=== PATIENT | female | born 1980 | race Caucasian/White ===

== ENCOUNTER → 2017-01-19 | Outpatient (CLI) | payer OTHER ==
--- NOTE | 2017-01-19 15:02 | CR ---
EXAMINATION: Two-view chest (PA and Lateral views). HISTORY: Nasopharyngitis. FINDINGS: The trachea is midline. The cardiomediastinal silhouette is within normal limits. No pulmonary infil trates, effusions or pneumothorax. Osseous structures appear unremarkable. IMPRESSION: No acute cardiopulmonary process.
== END ==
LOC: MW.CHRC 13:50
PROVIDERS: ATTEND Family Medicine
DX: J00 Acute nasopharyngitis [common cold] (principal)
CPT/HCPCS: 71020; 71020-26; 87804

== ENCOUNTER → 2017-03-03 | Outpatient (CLI) | payer OTHER ==
[~2017-03-03] MED LIST: Gadobutrol 7.5 mMOL/7.5 ML SDV IVPUSH STA
--- NOTE | 2017-03-03 14:20 | MR ---
EXAMINATION: MRI of the brain with and without contrast. TECHNIQUE: Multiplanar and multisequence imaging of the brain without and following the administrati on of 7 mL of Gadavist. HISTORY: Benign paroxysmal vertigo. FINDINGS: Cerebral hemispheres and the deep nuclei are without hemorrhage, mass, edema, enhancement or atroph y. There are a few scattered subcortical and periventricular white matter FLAIR hyperintensities not ed. A few of these appear juxtacortical. No extraaxial collections or hemorrhage. The Ventricular system is of normal size and configuration without hydrocephalus. The brainstem and cerebellum are without hemorrhage, mass, edema, gliosis, e nhancement or atrophy. No diffusion restriction. Carotid basilar artery flow voids are intact. The venous sinuses are patent. There is moderate fluid within the right maxillary sinus. No internal auditory canal or cerebellopon durga angle masses or enhancement. The paranasal sinuses are clear. Globes, optic nerves, orbital apices, optic chiasm, optic tracts, lateral geniculate and visual deven ices are unremarkable. The pituitary and sella turcica are unremarkable. No meningeal enhancement. The craniocervical junction is unremarkable without Chiari malformation. No siderosis or evidence of vascular malformation. The calvarium is intact. IMPRESSION: 1. Several subtle white matter FLAIR foci, nonspecific. A few appear juxtacortical, this could sugge st a demyelinating process such as MS. 2. No acute intracranial abnormalities. 3. Mild fluid within the right mastoid air cells, likely an effusion.
== END | disposition home or self-care (01) ==
LOC: MW.MRI 08:47
PROVIDERS: ATTEND Family Medicine
DX: H81.11 Benign paroxysmal vertigo, right ear (principal)
CPT/HCPCS: 70553; A9585

== ENCOUNTER 2017-06-08 04:45 | Emergency (ER) | payer OTHER ==
[2017-06-08] MEDS ORDERED: Ketorolac 30 MG/ML SDV IVPUSH ONE (04:55)
[2017-06-08] MEDS ORDERED: HYDROmorphone 2 MG/ML Syringe IVPUSH ONE (04:55)
[2017-06-08] MEDS ORDERED: Ondansetron 4 MG/2 ML SDV IVPUSH ONE ×2 (04:55→05:55)
[2017-06-08] MEDS ORDERED: Sodium Chloride 0.9% 10 ML Syringe FLUSH PRN (04:55)
[2017-06-08] MEDS ORDERED: Sodium Chloride 0.9% 1,000 ML IV ONE (04:55)
[2017-06-08] MEDS ORDERED: Sodium Chloride 0.9% 2.5 ML Syringe FLUSH PRN (04:55)
--- NOTE | 2017-06-08 05:00 | EDM.PDOC ---
ED HPI GENERAL MEDICAL PROBLEM - General Chief Complaint: Flank Pain Stated Complaint: KIDNEY STONES Time Seen by Provider: 06/08/17 04:51 - History of Present Illness INITIAL COMMENTS - FREE TEXT/NARRATIVE: HISTORY AND PHYSICAL: History of present illness: The patient is a 36-year-old female who says that she has had many episodes of kidney stones all of which she has passed spontaneously and never had to have surgeries and presents with recurrent right lower quadrant pain that has been ongoing since mid April. The patient was seen in the clinic and had labs and a CT scan of the abdomen and pelvis performed on May 13 which I have reviewed--- the CT showed a 3-4 mm stone in the mid right ureter without significant hydronephrosis. The patient states she's been taking Flomax and straining her urine but has not passed the kidney stone. She's been doing relatively well and over the last few days she has had recurrence of the pain which is waxing and waning in intensity and she has not been taking any pain medication for it. She says she has no prescription pain medicines either that she can take. She says she is still passing blood with her urine. The patient says she has been just trying to deal with the pain at home and then it worsened this evening and this morning and at 5 AM, one hour ago, she started having vomiting and nausea for evaluation. She says she normally drinks a lot of sweet tea but has been trying to increase her hydration since she was diagnosed with a kidney stone. She has not followed up in the clinic since that visit but she has seen the urologist one time in the office 2 weeks ago and was told to come to the ER if the pain increased. Patient describes the pain as deep sharp and located in the right lower quadrant and area and it is similar to her prior kidney stone pain. Patient has a history of a tubal ligation but still has her appendix but has not had any fevers. Review of systems: As per history of present illness and below otherwise all systems reviewed and negative. Past medical history: As per history of present illness and as reviewed below otherwise noncontributory. Surgical history: As per history of present illness and as reviewed below otherwise noncontributory. Social history: No reported history of drug or alcohol abuse. Family history: As per history of present illness and as reviewed below otherwise noncontributory. Physical exam: General: Well-developed well-nourished female who is nontoxic and looks uncomfortable in the bed HEENT: Atraumatic, normocephalic, pupils reactive, negative for conjunctival pallor or scleral icterus, mucous membranes tacky, throat clear, neck supple, nontender, trachea midline. Lungs: Clear to auscultation, breath sounds equal bilaterally, chest nontender. Heart: S1S2, regular rate and rhythm no overt murmurs Abdomen: Soft, nondistended, nontender. I cannot reproduce the pain on palpation Negative for masses or hepatosplenomegaly. Negative for costovertebral tenderness. Pelvis: Stable nontender. Genitourinary: Deferred. Rectal: Deferred. Extremities: Atraumatic, negative for cords or calf pain. Neurovascular unremarkable. Neuro: Awake, alert, oriented. Cranial nerves II through XII unremarkable. Cerebellum unremarkable. Motor and sensory unremarkable throughout. Exam nonfocal. Diagnostics: CBC CMP UA urine culture CT scan of the abdomen and pelvis Therapeutics: IV fluids Zofran Toradol Dilaudid With the patient's allergies and specifically asked her if she could have IV narcotics and she states that she does not have a reaction to them. The patient is aware of all testing results and states that her pain is significantly improved and manageable. She still having some dry heaves in the ER so we will give a second dose of Zofran and reevaluate. She is giving a urine sample now which I will follow-up with and plan to discuss with urology CT scan results and the patient's clinical condition. I did clarify with the patient her reaction to taking Vicodin and acetaminophen in the Vicodin and she states that she was told by a performance improvement coordinator that she had some irregular beats with her heart not cardiac arrest and that she probably shouldn't take it. She has never had cardiac arrest or anything more significant than some cardiac ectopy with this medication. 0635: Testing results were reviewed with Dr. Brennan her urologist; he wants the patient to be given a dose of IV Cipro and see him in these office today at 1 PM. I will write prescriptions for Zofran Proctor and advised her to return to the ER if she cannot make it to the 1 PM appointment. Impression: Right ureteral colic, persistent right ureteral stone, UTI Definitive disposition and diagnosis as appropriate pending reevaluation and review of above. Right Flank Pain Score (Numeric/FACES): 9 - Related Data Allergies Allergy/AdvReac Type Severity Reaction Status Date / Time acetaminophen [From Vicodin] Allergy Arrhythmias Verified 06/08/17 06:09 hydrocodone [From Vicodin] Allergy Arrhythmias Verified 06/08/17 06:09 levofloxacin [From Levaquin] Allergy Vomiting Verified 06/08/17 04:48 oxycodone [From Percocet] Allergy Rash Verified 06/08/17 04:48 Penicillins Allergy Other Verified 06/08/17 04:48 promethazine [From Phenergan] Allergy Other Verified 06/08/17 04:48 Home Meds: Home Meds Topiramate 50 mg PO DAILY 12/09/16 [History] metFORMIN HCl [Metformin HCl] 500 mg PO DAILY 12/09/16 [History] FLUoxetine HCl [Prozac] 60 mg PO DAILY 06/08/17 [History] Tamsulosin [Flomax] 0.4 mg PO BEDTIME 06/08/17 [History] Past Medical History HEENT History: Reports: Other (See Below) Other HEENT History: Seasonal allergies Musculoskeletal History: Reports: Other (See Below) Other Musculoskeletal History: Scoliosis Endocrine/Metabolic History: Reports: Diabetes, Type II Social & Family History - Tobacco Use Smoking Status *Q: Never Smoker Second Hand Smoke Exposure: No - Caffeine Use Caffeine Use: Reports: Tea - Recreational Drug Use Recreational Drug Use: No ED ROS GENERAL - Review of Systems Review Of Systems: ROS reveals no pertinent complaints other than HPI. ED EXAM, GENERAL - Physical Exam Exam: See Below (See dictation) Course - Vital Signs Last Recorded V/S: Last Vital Signs Temp 36.4 C 06/08/17 04:47 Pulse 94 06/08/17 06:27 Resp 17 06/08/17 06:27 BP 128/74 06/08/17 06:27 Pulse Ox 95 06/08/17 06:27 - Orders/Labs/Meds Orders: Active Orders 24 hr Category Date Time Status Abdomen Pelvis wo Cont [CT] Stat Exams 06/08/17 04:55 Taken CULTURE URINE [RM] Stat Lab 06/08/17 05:53 Received Ciprofloxacin in D5W [Cipro in D5W 400 MG/200 ML] 400 Med 06/08/17 06:37 Ordered mg Premix Bag 1 bag IV ONETIME Sodium Chloride 0.9% [Saline Flush] Med 06/08/17 04:55 Active 10 ml FLUSH ASDIRECTED PRN Sodium Chloride 0.9% [Saline Flush] Med 06/08/17 04:55 Active 2.5 ml FLUSH ASDIRECTED PRN Saline Lock Insert [OM.PC] Stat Oth 06/08/17 04:55 Ordered Medication Orders Sodium Chloride (Saline Flush) 10 ml FLUSH ASDIRECTED PRN PRN Reason: Keep Vein Open Last Admin: 06/08/17 05:08 Dose: 10 ml Sodium Chloride (Saline Flush) 2.5 ml FLUSH ASDIRECTED PRN PRN Reason: Keep Vein Open Last Admin: 06/08/17 05:07 Dose: 2.5 ml Labs: Laboratory Tests 06/08/17 06/08/17 06/08/17 Range/Units 04:44 04:44 05:53 WBC 10.26 (4.0-11.0) K/uL RBC 5.54 (4.30-5.90) M/uL Hgb 14.4 (12.0-16.0) g/dL Hct 43.6 (36.0-46.0) % MCV 78.7 L (80.0-98.0) fL MCH 26.0 L (27.0-32.0) pg MCHC 33.0 (31.0-37.0) g/dL RDW Std Deviation 43.2 (28.0-62.0) fl RDW Coeff of Diane 15 (11.0-15.0) % Plt Count 465 H (150-400) K/uL MPV 9.80 (7.40-12.00) fL Neut % (Auto) 62.2 (48.0-80.0) % Lymph % (Auto) 27.5 (16.0-40.0) % Zapata % (Auto) 7.5 (0.0-15.0) % Eos % (Auto) 2.5 (0.0-7.0) % Baso % (Auto) 0.3 (0.0-1.5) % Neut # (Auto) 6.4 H (1.4-5.7) K/uL Lymph # (Auto) 2.8 H (0.6-2.4) K/uL Zapata # (Auto) 0.8 (0.0-0.8) K/uL Eos # (Auto) 0.3 (0.0-0.7) K/uL Baso # (Auto) 0.0 (0.0-0.1) K/uL Nucleated RBC % 0.0 /100WBC Nucleated RBCs # 0 K/uL Sodium 141 (136-146) mmol/L Potassium 3.8 (3.5-5.1) mmol/L Chloride 107 (98-110) mmol/L Carbon Dioxide 22 (21-31) mmol/L BUN 9 (6.0-23.0) mg/dL Creatinine 1.0 (0.6-1.5) mg/dL Est Cr Clr Drug Dosing 69.98 mL/min Estimated GFR (MDRD) > 60.0 ml/min Glucose 136 H (60-110) mg/dL Calcium 9.6 (8.8-10.8) mg/dL Total Bilirubin 0.5 (0.1-1.5) mg/dL AST 19 (5-40) IU/L ALT 28 (8-54) IU/L Alkaline Phosphatase 117 (40-150) Total Protein 8.3 H (6.0-8.0) g/dL Albumin 4.6 (3.5-5.0) g/dL Globulin 3.7 H (2.0-3.5) g/dL Albumin/Globulin Ratio 1.2 L (1.3-2.8) Urine Color BROWN Urine Appearance BLOODY Urine pH 6.5 (5.0-8.0) Ur Specific Arg[place] >= 1.030 (1.001-1.035) Urine Protein >=300 (NEGATIVE) mg/dL Urine Glucose (UA) NEGATIVE (NEGATIVE) mg/dL Urine Ketones TRACE H (NEGATIVE) mg/dL Urine Occult Blood LARGE H (NEGATIVE) Urine Nitrite POSITIVE H (NEGATIVE) Urine Bilirubin MODERATE H (NEGATIVE) Urine Ictotest NEGATIVE Urine Urobilinogen 1.0 (<2.0) EU/dL Ur Leukocyte Esterase SMALL (NEGATIVE) Urine RBC TOO NUMBEROUS TO CT H (0-2/HPF) Urine WBC 5-10 (0-5/HPF) Ur Epithelial Cells FEW (NONE-FEW) Urine Bacteria FEW (NEGATIVE) Meds: Medications Generic Name Dose Route Start Last Admin Trade Name Freq PRN Reason Stop Dose Admin Sodium Chloride 10 ml 06/08/17 04:55 06/08/17 05:08 Saline Flush FLUSH 10 ml ASDIRECTED PRN Administration Keep Vein Open Sodium Chloride 2.5 ml 06/08/17 04:55 06/08/17 05:07 Saline Flush FLUSH 2.5 ml ASDIRECTED PRN Administration Keep Vein Open Discontinued Medications Generic Name Dose Route Start Last Admin Trade Name Freq PRN Reason Stop Dose Admin Hydromorphone HCl 1 mg 06/08/17 04:55 06/08/17 05:04 Dilaudid IVPUSH 06/08/17 04:56 1 mg ONETIME ONE Administration Sodium Chloride 1,000 mls @ 999 mls/hr 06/08/17 04:55 06/08/17 05:02 Normal Saline IV 06/08/17 05:55 999 mls/hr STAT ONE Administration Ketorolac Tromethamine 30 mg 06/08/17 04:55 06/08/17 05:03 Toradol IVPUSH 06/08/17 04:56 30 mg ONETIME ONE Administration Ondansetron HCl 4 mg 06/08/17 04:55 06/08/17 05:02 Zofran IVPUSH 06/08/17 04:56 4 mg ONETIME ONE Administration Ondansetron HCl 4 mg 06/08/17 05:55 06/08/17 06:00 Zofran IVPUSH 06/08/17 05:56 4 mg ONETIME ONE Administration Departure - Departure Time of Disposition: 06:39 Disposition: Home, Self-Care 01 Condition: Good Clinical Impression: Right ureteral stone, UTI, Urinary tract infectious disease - Discharge Information Referrals: PCP,None [Primary Care Provider] - Forms: ED Department Discharge Additional Instructions: The following information is given to patients seen in the emergency department who are being discharged to home. This information is to outline your options for follow-up care. We provide all patients seen in our emergency department with a follow-up referral. The need for follow-up, as well as the timing and circumstances, are variable depending upon the specifics of your emergency department visit. If you don't have a primary care physician on staff, we will provide you with a referral. We always advise you to contact your personal physician following an emergency department visit to inform them of the circumstance of the visit and for follow-up with them and/or the need for any referrals to a consulting specialist. The emergency department will also refer you to a specialist when appropriate. This referral assures that you have the opportunity for followup care with a specialist. All of these measure are taken in an effort to provide you with optimal care, which includes your followup. Under all circumstances we always encourage you to contact your private physician who remains a resource for coordinating your care. When calling for followup care, please make the office aware that this follow-up is from your recent emergency room visit. If for any reason you are refused follow-up, please contact the [facility] emergency department at and ask to speak to the emergency department charge nurse. [facility] [address] [place] [phone] Please go to see Dr. Brennan in his office today at 1 PM for further care. Please take Zofran as needed for nausea and vomiting and use pain medications as needed. Please continue with your Flomax and return to ER as needed and as discussed. - My Orders Last 24 Hours: My Active Orders 06/08/17 04:55 Abdomen Pelvis wo Cont [CT] Stat Sodium Chloride 0.9% [Saline Flush] 10 ml FLUSH ASDIRECTED PRN Sodium Chloride 0.9% [Saline Flush] 2.5 ml FLUSH ASDIRECTED PRN Saline Lock Insert [OM.PC] Stat 06/08/17 05:53 CULTURE URINE [RM] Stat 06/08/17 06:37 Ciprofloxacin in D5W [Cipro in D5W 400 MG/200 ML] 400 mg Premix Bag 1 bag IV ONETIME - Assessment/Plan Last 24 Hours: My Active Orders 06/08/17 04:55 Abdomen Pelvis wo Cont [CT] Stat Sodium Chloride 0.9% [Saline Flush] 10 ml FLUSH ASDIRECTED PRN Sodium Chloride 0.9% [Saline Flush] 2.5 ml FLUSH ASDIRECTED PRN Saline Lock Insert [OM.PC] Stat 06/08/17 05:53 CULTURE URINE [RM] Stat 06/08/17 06:37 Ciprofloxacin in D5W [Cipro in D5W 400 MG/200 ML] 400 mg Premix Bag 1 bag IV ONETIME
[2017-06-08 05:43] LABS: CHLORIDE,CL 107 mmol/L (98-110); SODIUM,NA 141 mmol/L (136-146)
[2017-06-08] MEDS ORDERED: Ciprofloxacin in D5W 400 MG in Premix Bag 1 BAG IV ONE ×2 (06:37)
[2017-06-08 07:45] VITALS: BP 133/83
--- NOTE | 2017-06-08 13:03 | CT ---
EXAM DATE: 06/08/17 PATIENT'S AGE: 36 Patient: ASHER GREENE Facility: [place], [place] Site . Site : [id number] Study: CT Abdomen/Pelvis wo donna [id number]/17/2017 5:33:44 AM Ordering Physician: Praful Man Final Report: INDICATION: Right-sided pain with history of kidney stones. TECHNIQUE: CT abdomen and pelvis without contrast. COMPARISON: Recent CT study dated 05/13/2017. FINDINGS: Lower chest: Unremarkable. Liver: Unremarkable. Spleen: Unremarkable. Pancreas: Unremarkable. Gallbladder and bile ducts: Unremarkable. Adrenal glands: Unremarkable. Kidneys: Stable 4 millimeter nonobstructing left renal calculus. Inferior migration of right ureteral calculus, now noted in the right pelvis on series 201, image 122, measuring 5 millimeters. New mild right hydronephrosis and dilated right ureter, extending to the level of distal right ureteral calculus. GI tract: Small hiatal hernia. Loops of bowel are normal in caliber. Normal appendix. Vascular structures: Limited evaluation mesenteric vessels without IV contrast. Abdominal aorta normal in caliber. Lymph nodes: Unremarkable. Miscellaneous: Unremarkable. No free air or significant free fluid. Pelvic Organs: Postsurgical changes from tubal ligation. Uterus and adnexal structures are unremarkable. No free fluid. Bones: Unremarkable for age. IMPRESSION: 1. Inferior migration of right ureteral calculus from 05/13/2017, now in the distal right ureter just above the right acetabular level, visualized on series 203, image 54, measuring 5 millimeters in size. 2. Interval development of mild right hydronephrosis and hydroureter from earlier CT study. 3. Left nephrolithiasis. No hydronephrosis or left ureteral calculus. 4. Normal appendix. Dictated by Cortes King MD @ 06/08/2017 5:49:32 AM Dictated by: Cortes King MD @ 06/08/2017 05:49:41 (Electronic Signature) Report Signed by Proxy. [facility] HOSPITALSharath
== END 2017-06-08 08:02 | disposition home or self-care (01) ==
LOC: MW.ED 04:45
DX: N13.2 Hydronephrosis with renal and ureteral calculous obstruction (principal); E11.9 Type 2 diabetes mellitus without complications; Z88.6 Allergy status to analgesic agent; Z88.5 Allergy status to narcotic agent; Z88.0 Allergy status to penicillin; Z79.84 Long term (current) use of oral hypoglycemic drugs; Z79.899 Other long term (current) drug therapy
CPT/HCPCS: 74176; 80053; 81001; 85025; 87086; 96361; 96365; 96375; 96376; 99284; J0744; J1170; J1885; J2405; J7040

== ENCOUNTER 2017-06-08 13:31 | Observation (INO) | payer OTHER ==
[2017-06-08] MEDS ORDERED: HYDROmorphone 1 MG/ML Syringe IVPUSH ONE (13:34)
[2017-06-08] MEDS ORDERED: Morphine PF 30 MG/30 ML PCA Vial IV SCH (13:45)
[2017-06-08] MEDS ORDERED: Ciprofloxacin in D5W 400 MG in Premix Bag 1 BAG IV SCH ×2 (13:45)
[2017-06-08] MEDS: Ondansetron 4 MG/2 ML SDV IVPUSH PRN ×2 (13:52→18:37)
[2017-06-08] MEDS: Lactated Ringers 1,000 ML IV SCH ×2 (13:55→22:30)
[2017-06-08] MEDS: Ciprofloxacin in D5W 400 MG in Premix Bag 1 BAG IV SCH ×2 (17:28)
[2017-06-09] MEDS: Lactated Ringers 1,000 ML IV SCH ×2 (05:14→13:47)
[2017-06-09] MEDS: Ciprofloxacin in D5W 400 MG in Premix Bag 1 BAG IV SCH ×2 (05:50)
[2017-06-09] MEDS ORDERED: Iopamidol 408 MG/ML 50 ML SDV ONE (12:08)
[2017-06-09] MEDS ORDERED: fentaNYL 250 MCG/5 ML SDV ONE (14:33)
[2017-06-09] MEDS ORDERED: Midazolam 1 MG/ML 2 ML SDV ONE (14:33)
[2017-06-09] MEDS ORDERED: Propofol 200 MG/20 ML SDV ONE (14:33)
[2017-06-09] MEDS ORDERED: Lidocaine 2% 5 ML SDV ONE (14:33)
--- NOTE | 2017-06-09 14:59 | PCM.PREANE ---
Preanesthetic Assessment - Anesthesia/Transfusion/Family Hx Anesthesia History: Prior Anesthesia Without Reaction Family History of Anesthesia Reaction: No Intubation History: History of Difficulty Intubation - Review of Systems General: No Symptoms Pulmonary: No Symptoms Cardiovascular: No Symptoms, Orthopnea Neurological: No Symptoms Other: Reports: None - Physical Assessment O2 Sat by Pulse Oximetry: 100 Respiratory Rate: 20 Vital Signs: Last Vital Signs Temp 36.3 C 06/09/17 11:44 Pulse 68 06/09/17 11:44 Resp 20 06/09/17 11:44 BP 120/78 06/09/17 11:44 Pulse Ox 100 06/09/17 11:44 Height: 1.65 m Weight: 78.925 kg ASA Class: 2 Mental Status: Alert & Oriented x3 Dentition: Reports: Normal Dentition, Broken Tooth/Teeth, Missing Tooth/Teeth Thyro-Mental Finger Breadths: 1 Mouth Opening Finger Breadths: 2 ROM/Head Extension: Full Lungs: Clear to auscultation Cardiovascular: Regular Rate - Lab Values: Laboratory Last Values POC Glucose 97 mg/dL (60-110) 06/09/17 06:08 - Allergies Allergies/Adverse Reactions: Allergies Allergy/AdvReac Type Severity Reaction Status Date / Time acetaminophen [From Vicodin] Allergy Arrhythmias Verified 06/08/17 06:09 hydrocodone [From Vicodin] Allergy Arrhythmias Verified 06/08/17 06:09 levofloxacin [From Levaquin] Allergy Vomiting Verified 06/08/17 04:48 oxycodone [From Percocet] Allergy Rash Verified 06/08/17 04:48 Penicillins Allergy Other Verified 06/08/17 04:48 promethazine [From Phenergan] Allergy Other Verified 06/08/17 04:48 - Blood Blood Available: No Product(s) Available: None - Acknowledgements Anesthesia Type Planned: General Anesthesia Pt an Appropriate Candidate for the Planned Anesthesia: Yes Alternatives and Risks of Anesthesia Discussed w Pt/Guardian: Yes Pt/Guardian Understands and Agrees with Anesthesia Plan: Yes PreAnesthesia Questionnaire HEENT History: Reports: Other (See Below) Other HEENT History: Seasonal allergies Cardiovascular History: Reports: High Cholesterol, Hypertension Genitourinary History: Reports: Renal Calculus INSERTER History: Reports: Musculoskeletal History: Reports: Other (See Below) Other Musculoskeletal History: Scoliosis Psychiatric History: Reports: Depression Endocrine/Metabolic History: Reports: Diabetes, Type II - Infectious Disease History Infectious Disease History: Reports: Chicken Pox - Past Surgical History Female Surgical History: Reports: Tubal Ligation - SUBSTANCE USE Smoking Status *Q: Unknown Ever Smoked Second Hand Smoke Exposure: No Recreational Drug Use History: No - HOME MEDS Home Medications: Home Meds Topiramate 50 mg PO BID 12/09/16 [History] metFORMIN HCl [Metformin HCl] 500 mg PO BIDMEALS 12/09/16 [History] FLUoxetine HCl [Prozac] 60 mg PO DAILY 06/08/17 [History] Ferrous Sulfate 325 mg PO TIDMEALS 06/08/17 [History] Tamsulosin [Flomax] 0.4 mg PO BEDTIME 06/08/17 [History] - CURRENT (IN HOUSE) MEDS Current Meds: Current Medications Lactated Ringer's (Ringers, Lactated) 1,000 mls @ 150 mls/hr IV ASDIRECTED [facility] Last Admin: 06/09/17 13:47 Dose: 150 mls/hr Ciprofloxacin/Dextrose 400 mg/ (Premix) 200 mls @ 200 mls/hr IV Q12H [facility] Last Admin: 06/09/17 05:50 Dose: 200 mls/hr Morphine Sulfate (Morphine Engineering Supervisor 30 Mg In 30 Ml) 0 mg IV ASDIRECTED [facility] PRN Reason: Protocol Last Admin: 06/08/17 14:00 Dose: 30 mg Ondansetron HCl (Zofran) 4 mg IVPUSH Q3H PRN PRN Reason: Nausea Last Admin: 06/08/17 18:37 Dose: 4 mg Discontinued Medications Fentanyl (Sublimaze) Confirm Administered Dose 250 mcg .ROUTE .STK-MED ONE Stop: 06/09/17 14:34 Hydromorphone HCl (Dilaudid) 2 mg IVPUSH ONETIME ONE Stop: 06/08/17 13:35 Last Admin: 06/08/17 13:53 Dose: 2 mg Ciprofloxacin/Dextrose 400 mg/ (Premix) 200 mls @ 200 mls/hr IV Q12H [facility] Last Admin: 06/08/17 14:48 Dose: Not Given Iopamidol (Isovue-200 (41%)) Confirm Administered Dose 50 ml .ROUTE .STK-MED ONE Stop: 06/09/17 12:09 Lidocaine (Xylocaine-Mpf 2%) Confirm Administered Dose 10 ml .ROUTE .STK-MED ONE Stop: 06/09/17 14:34 Midazolam HCl (Versed 1 Mg/Ml) Confirm Administered Dose 2 mg .ROUTE .STK-MED ONE Stop: 06/09/17 14:34 Propofol (Diprivan 20 Ml) Confirm Administered Dose 400 mg .ROUTE .STK-MED ONE Stop: 06/09/17 14:34
[2017-06-09] MEDS ORDERED: Succinylcholine/Normal Saline 200 MG/10 ML Syringe ONE (15:16)
[2017-06-09] MEDS ORDERED: fentaNYL 100 MCG/2 ML SDV IVPUSH PRN (15:23)
[2017-06-09] MEDS ORDERED: Neostigmine Methylsulfate 1 MG/ML 5 ML Syringe ONE (15:28)
[2017-06-09] MEDS ORDERED: Ketorolac 30 MG/ML SDV ONE (15:28)
[2017-06-09] MEDS ORDERED: Ondansetron 4 MG/2 ML SDV ONE (15:28)
[2017-06-09] MEDS ORDERED: Rocuronium 10 MG/ML 10 ML Syringe ONE (15:28)
--- NOTE | 2017-06-09 15:40 | PCM.SN ---
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 other surgeries have been completed including tubal ligation without difficulty other than declared difficult intubation
--- NOTE | 2017-06-09 16:13 | PCM.POSTAN ---
POST ANESTHESIA ASSESSMENT - MENTAL STATUS Mental Status: alert, oriented - RESPIRATORY Respiratory Status: respiratory rate WNL, airway patent, O2 saturation stable - CARDIOVASCULAR CV Status: pulse rate WNL, blood pressure stable - GASTROINTESTINAL GI Status: no symptoms - PAIN Pain Score: 0 - POST OP HYDRATION Hydration Status: adequate & stable
--- NOTE | 2017-06-09 16:58 | PCM48HPAN ---
Post Anesthesia Note - EVALUATION WITHIN 48HRS OF ANESTHETIC Vital Signs in Normal Range: Yes Patient Participated in Evaluation: Yes Respiratory Function Stable: Yes Airway Patent: Yes Cardiovascular Function Stable: Yes Hydration Status Stable: Yes Pain Control Satisfactory: Yes Nausea and Vomiting Control Satisfactory: Yes Mental Status Recovered: Yes
[2017-06-09 17:31] VITALS: BP 131/71
--- NOTE | 2017-06-09 23:24 | OR ---
SURGEON: Scotty Brennan M.D. DATE OF PROCEDURE: 06/09/2017 PREOPERATIVE DIAGNOSIS: Right lower ureteral stone. POSTOPERATIVE DIAGNOSIS: Right lower ureteral stone. OPERATION: Right ureteroscopy and stone removal. DESCRIPTION OF PROCEDURE: The patient was given general anesthesia, placed in dorsal lithotomy position, prepped and draped in sterile drapes. Cystourethroscopy was done that was normal. A guidewire was advanced in the right ureter alongside the stone all the way up into the renal pelvis. It was done under fluoro. The lower ureter was dilated using the UroMax II balloon dilator to approximately 15-Japanese. The StorMed.ly rigid ureteroscope was used to gain access into the right lower ureter. The stone was visualized and removed using the Zero Tip basket. The ureter was minimally traumatized, but not enough to require a stent placement. The bladder was emptied and the patient was moved to the recovery room in good condition. The stones were submitted. ELYSIA / HILDA /[id number]
--- NOTE | 2017-06-10 09:53 | CR ---
EXAMINATION: Ureteroscopy HISTORY: Stone COMPARISON: CT dated 06/08/2017. TECHNIQUE: 2 fluoroscopic images provided FINDINGS/IMPRESSION: Operative control films demonstrate selection of the right ureter with balloon stone removal.
--- NOTE | 2017-06-10 12:41 | DISCH ---
DATE OF DISCHARGE: 06/09/2017 PRIMARY CARE PHYSICIAN: None PCP Janis Crabtree is a 6-year-old. She was admitted to the hospital with intractable right renal colic. She had a ureteral stone that has gone from the upper ureter to the lower ureter over the period of about 2 weeks. The pain started back and she was admitted to the hospital for pain control and further management. While in the hospital, she stayed stable, afebrile, vital signs were normal, and she was maintained on Dilaudid for pain control. I took her to the operating room. On 06/09/2017 did right ureteroscopy and stone removal. I did not leave a stent and did not feel that I needed that. She did well and was sent home. ELYSIA / HILDA /[id number]
== END 2017-06-09 17:31 | disposition home or self-care (01) ==
LOC: MW.MS 13:31
PROVIDERS: ADMIT Urology; ATTEND Urology
DX: N13.2 Hydronephrosis with renal and ureteral calculous obstruction (principal); F41.9 Anxiety disorder, unspecified; F32.9 Major depressive disorder, single episode, unspecified; E78.00 Pure hypercholesterolemia, unspecified; E78.1 Pure hyperglyceridemia; K21.9 Gastro-esophageal reflux disease without esophagitis; E66.3 Overweight; E11.9 Type 2 diabetes mellitus without complications; Z88.0 Allergy status to penicillin; Z88.1 Allergy status to other antibiotic agents; Z88.8 Allergy status to other drugs, medicaments and biological substances; Z79.899 Other long term (current) drug therapy; Z79.84 Long term (current) use of oral hypoglycemic drugs; Z98.890 Other specified postprocedural states; Z98.51 Tubal ligation status; Z87.891 Personal history of nicotine dependence; Z88.6 Allergy status to analgesic agent; Z88.5 Allergy status to narcotic agent
CPT/HCPCS: 52352; 74176; 76000; 80053; 81001; 82962; 85025; 87086; 88300; 96361; 96365; 96366; 96375; 96376; 99284; C1769; G0378; J0744; J1170; J1885; J2250; J2274; J2405; J3010; J7040; J7120; Q9966; 00910; J2704

== ENCOUNTER 2017-10-14 08:28 | Day surgery (SDC) | payer OTHER ==
[~2017-10-14 08:28] MED LIST changes: -Gadobutrol 7.5 mMOL/7.5 ML SDV IVPUSH STA; +Lactated Ringers 1,000 ML IV SCH; +Sodium Chloride 0.9% 10 ML Syringe FLUSH PRN; +Sodium Chloride 0.9% 2.5 ML Syringe FLUSH PRN
--- NOTE | 2017-10-14 09:39 | PCM.PREANE ---
Preanesthetic Assessment - Anesthesia/Transfusion/Family Hx Anesthesia History: Prior Anesthesia Without Reaction Transfusion History: No Prior Transfusion(s) Intubation History: History of Difficulty Intubation - Review of Systems General: No Symptoms Pulmonary: No Symptoms Cardiovascular: No Symptoms Gastrointestinal: No Symptoms Neurological: No Symptoms Other: Reports: None - Physical Assessment NPO Status Date: 10/14/17 NPO Status Time: 00:00 Height: 5 ft 5 in Weight: 74.389 kg ASA Class: 3 Mental Status: Alert & Oriented x3 Thyro-Mental Finger Breadths: 3 Mouth Opening Finger Breadths: 3 ROM/Head Extension: Full Lungs: Clear to Auscultation, Normal Respiratory Effort Cardiovascular: Regular Rate, Regular Rhythm - Lab Values: Laboratory Last Values Urine HCG, Qual NEGATIVE (NEGATIVE) 10/14/17 08:30 - Allergies Allergies/Adverse Reactions: Allergies Allergy/AdvReac Type Severity Reaction Status Date / Time acetaminophen [From Vicodin] Allergy Arrhythmias Verified 09/25/17 14:05 hydrocodone [From Vicodin] Allergy Arrhythmias Verified 09/25/17 14:05 levofloxacin [From Levaquin] Allergy Vomiting Verified 09/25/17 14:05 oxycodone [From Percocet] Allergy Rash Verified 09/25/17 14:05 Penicillins Allergy Cannot Verified 09/25/17 14:05 Remember promethazine [From Phenergan] Allergy Other Verified 09/25/17 14:05 tramadol Allergy Nausea and Verified 09/25/17 14:04 Vomiting - Acknowledgements Anesthesia Type Planned: General Anesthesia Pt an Appropriate Candidate for the Planned Anesthesia: Yes Alternatives and Risks of Anesthesia Discussed w Pt/Guardian: Yes Pt/Guardian Understands and Agrees with Anesthesia Plan: Yes PreAnesthesia Questionnaire HEENT History: Reports: Allergic Rhinitis, Other (See Below) Other HEENT History: wears contacts Cardiovascular History: Reports: High Cholesterol, Hypertension Respiratory History: Reports: Pneumothorax, Other (See Below) Other Respiratory History: hx spontaneous pneumothorax Gastrointestinal History: Reports: GERD (Occ.), Irritable Bowel Syndrome Genitourinary History: Reports: Renal Calculus CATERING COORDINATOR History: Reports: Musculoskeletal History: Reports: Fracture, Other (See Below) Other Musculoskeletal History: Scoliosis Neurological History: Reports: None Psychiatric History: Reports: Anxiety, Depression Endocrine/Metabolic History: Reports: None, Diabetes, Type II (Last A1C 6 range per patient) Hematologic History: Reports: None Immunologic History: Reports: None Oncologic (Cancer) History: Reports: None Dermatologic History: Reports: None - Infectious Disease History Infectious Disease History: Reports: Chicken Pox - Past Surgical History Head Surgeries/Procedures: Reports: None HEENT Surgical History: Reports: Tonsillectomy, Other (See Below) Other HEENT Surgeries/Procedures: ear surgery x8 Female Surgical History: Reports: Kidney stone extraction, Tubal Ligation Endocrine Surgical History: Reports: None Neurological Surgical History: Reports: Scoliosis Musculoskeletal Surgical History: Reports: Other (See Below) Other Musculoskeletal Surgeries/Procedures:: hx surgery for fx ankle - SUBSTANCE USE Smoking Status *Q: Former Smoker Tobacco Use Within Last Twelve Months: No Second Hand Smoke Exposure: No Recreational Drug Use History: No - HOME MEDS Home Medications: Home Meds metFORMIN HCl [Metformin HCl] 500 mg PO BIDMEALS 12/09/16 [History] FLUoxetine HCl [Prozac] 60 mg PO DAILY 06/08/17 [History] - CURRENT (IN HOUSE) MEDS Current Meds: Current Medications Lactated Ringer's (Ringers, Lactated) 1,000 mls @ 100 mls/hr IV ASDIRECTED NATA Lactated Ringer's (Ringers, Lactated) 1,000 mls @ 125 mls/hr IV ASDIRECTED NATA Sodium Chloride (Saline Flush) 10 ml FLUSH ASDIRECTED PRN PRN Reason: Keep Vein Open Sodium Chloride (Saline Flush) 2.5 ml FLUSH ASDIRECTED PRN PRN Reason: Keep Vein Open
[2017-10-14] MEDS ORDERED: Midazolam 1 MG/ML 2 ML SDV ONE ×2 (09:57→11:05)
[2017-10-14] MEDS ORDERED: Ondansetron 4 MG/2 ML SDV ONE (09:57)
[2017-10-14] MEDS ORDERED: Lidocaine 2% 5 ML SDV ONE (09:57)
[2017-10-14] MEDS ORDERED: fentaNYL 100 MCG/2 ML SDV ONE (09:57)
[2017-10-14] MEDS ORDERED: Propofol 200 MG/20 ML SDV ONE (09:57)
[2017-10-14] MEDS ORDERED: EPINEPHrine 1 MG/ML SDV ONE (10:55)
--- NOTE | 2017-10-14 10:59 | PCM.HPR ---
H & P Addendum review - H & P Addendum Review Date of Original H & P: 09/24/17 Date Reviewed: 10/14/17 Time Reviewed: 10:30 Patient was Examined: No Changes
[2017-10-14] MEDS ORDERED: fentaNYL 100 MCG/2 ML SDV IVPUSH PRN (11:19)
--- NOTE | 2017-10-14 11:55 | PCM.POSTAN ---
POST ANESTHESIA ASSESSMENT - MENTAL STATUS Mental Status: Alert, Oriented - RESPIRATORY Respiratory Status: Respiratory Rate WNL, Airway Patent, O2 Saturation Stable - CARDIOVASCULAR CV Status: Pulse Rate WNL, Blood Pressure Stable - GASTROINTESTINAL GI Status: No Symptoms - PAIN Pain Score: 0 - POST OP HYDRATION Hydration Status: Adequate & Stable
[2017-10-14 13:43] VITALS: BP 110/73
--- NOTE | 2017-10-14 14:22 | PCM.OPNOTE ---
- General Post-Op/Procedure Note Condition: Good Free Text/Narrative:: Intake & Output 10/13/17 10/14/17 10/14/17 22:59 06:59 14:59 Intake Total 750 Balance 750 Diagnosis: Eustachian tube dysfunction; Right retracted Tympanic membrane; hearing loss. Procedure: Right Myringotomy with Tympanostomy tube Surgeon : Paula Escalante MD Anesthesiologist : Manny Avitia CRNA Date of procedure: 10/14/2017 Indications : Patient was seen in my office with a history of repeated right sided ear infections when she would get episodes of fullness in the ear, blockage and hearing loss. She has undergone 5 / 7 sets of tympanostomy tubes in the past and right tympanoplasty for similar problems. 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 On office exam under microscope she was found to have severe retraction of tympanic membrane except in the anterior superior segment. Decision was made for exam under microscope in the operating room and possible tympanostomy tube. Findings : Severe retraction of pars flaccida. Unable to visualize the head of malleus. Posterior and inferior aspect of pars tensa grade 4 retraction - unable to lift off the promontory. Anterior superior aspect of pars tensa intact and not retracted. This part of tympanic membrane however was lacking the additional tensile strength. A myringotomy tube was inserted in this segment. Operation Details: An informed consent for the procedure was obtained . A time out was performed and the patient was brought back to the operating room and laid supine on the operating room table. Anesthesia was administered with an LMA. The right ear was addressed. Cerumen was cleared from the external auditory canal. Findings as above. An anterior superior myringotomy incision was made in the pars tensa. A FORTE tympanostomy tube was placed with an alligator forceps. A cotton wool wall was placed in the [place]. Specimens: None IV fluids: 750 ml Blood products: nil Disposition: PACU for recovery Follow up: In 1 week.
== END 2017-10-14 12:35 | disposition home or self-care (01) ==
LOC: MW.SDS 08:28
PROVIDERS: ATTEND Otolaryngology
DX: H73.891 Other specified disorders of tympanic membrane, right ear (principal); H69.91 Unspecified Eustachian tube disorder, right ear; H90.6 Mixed conductive and sensorineural hearing loss, bilateral; E78.00 Pure hypercholesterolemia, unspecified; I10 Essential (primary) hypertension; K21.9 Gastro-esophageal reflux disease without esophagitis; F41.9 Anxiety disorder, unspecified; F32.9 Major depressive disorder, single episode, unspecified; E11.9 Type 2 diabetes mellitus without complications; H66.91 Otitis media, unspecified, right ear; H81.10 Benign paroxysmal vertigo, unspecified ear; E66.3 Overweight; Z68.27 Body mass index [BMI] 27.0-27.9, adult; Z88.0 Allergy status to penicillin; Z88.1 Allergy status to other antibiotic agents; Z88.5 Allergy status to narcotic agent; Z88.6 Allergy status to analgesic agent; Z88.8 Allergy status to other drugs, medicaments and biological substances; Z79.84 Long term (current) use of oral hypoglycemic drugs; Z79.899 Other long term (current) drug therapy; Z98.51 Tubal ligation status; Z98.890 Other specified postprocedural states; Z80.0 Family history of malignant neoplasm of digestive organs; Z87.442 Personal history of urinary calculi; Z87.891 Personal history of nicotine dependence
CPT/HCPCS: 69436; 81025; J2250; J2405; J3010; J7120; 00120; J0171; J2704